=== PATIENT | female | born 1955 | race Caucasian/White ===

== ENCOUNTER → 2022-01-29 | Day surgery (SDC) | payer MEDICARE, OTHER ==
[~2022-01-29] VITALS: Ht 170.2 cm; Wt 73.9 kg
[~2022-01-29] MED LIST: ATORVASTATIN CA20 MG PO; METFORMIN HCL500 M1 PO; OMEPRAZOLE 20MG20 MG PO; VITAMIN B-121000 MC1 PO; VITAMIN D PO
== END | disposition home or self-care (01) ==
LOC: FAS 01-08 08:15
DX: D12.3 Benign neoplasm of transverse colon (principal); D12.4 Benign neoplasm of descending colon; K62.1 Rectal polyp; K31.A0 Gastric intestinal metaplasia, unspecified; K31.7 Polyp of stomach and duodenum; K44.9 Diaphragmatic hernia without obstruction or gangrene; D17.5 Benign lipomatous neoplasm of intra-abdominal organs; K22.70 Barrett's esophagus without dysplasia; K64.4 Residual hemorrhoidal skin tags; K21.9 Gastro-esophageal reflux disease without esophagitis; E78.5 Hyperlipidemia, unspecified; M81.0 Age-related osteoporosis without current pathological fracture; E11.9 Type 2 diabetes mellitus without complications; Z87.891 Personal history of nicotine dependence; Z86.010 Personal history of colon polyps; Z88.5 Allergy status to narcotic agent; Z79.899 Other long term (current) drug therapy
CPT/HCPCS: J1885; J2704; J7120

== ENCOUNTER 2022-03-06 20:08 | Emergency (ER) | payer MEDICARE, OTHER ==
[2022-03-06] MEDS ORDERED: NORCO 5-325 TA1 EACH PO (21:48)
== END 2022-03-06 21:52 | disposition home or self-care (01) ==
LOC: FER 20:08
DX: S93.601A Unspecified sprain of right foot, initial encounter (principal); E11.9 Type 2 diabetes mellitus without complications; Z88.5 Allergy status to narcotic agent; Z79.84 Long term (current) use of oral hypoglycemic drugs; W11.XXXA Fall on and from ladder, initial encounter; Y92.009 Unspecified place in unspecified non-institutional (private) residence as the place of occurrence of the external cause
CPT/HCPCS: 73630